=== PATIENT | female | born 1940 | race Two or more races ===

== ENCOUNTER 2021-11-14 13:08 | Inpatient (IN) | payer MEDICARE, OTHER ==
[~2021-11-14] VITALS: Ht 157.5 cm; Wt 111.1 kg
[~2021-11-14 13:08] MED LIST: APIX5TAB PO; ASPI-1094 PO; ATOR40TA PO; BUME1TAB9 PO; BUPR150T10 PO; CARV6.25 PO
[2021-11-14] MEDS ORDERED: ALTEPLASE CATHFLO 2 MG/VIAL IV ONE (13:11)
[2021-11-14] MEDS ORDERED: MORPHINE SULFATE INJ 4 MG/ML DISP.SYRIN ONE (14:18)
[2021-11-14] MEDS ORDERED: ONDANSETRON HCL/PF 4 MG/2 ML VIAL ONE (14:18)
[2021-11-14] MEDS ORDERED: ONDANSETRON HCL/PF 4 MG/2 ML VIAL IVP ONE (14:30)
[2021-11-14] MEDS ORDERED: MORPHINE SULFATE INJ 2 MG/ML DISP.SYRIN IV ONE (14:30)
[2021-11-14 14:45] LABS: BASOPHILS % (AUTO) 0.3 % (0.0-2.0); EOSINOPHILS % (AUTO) 1.4 % (0.0-6.0); HEMATOCRIT 39 % (33-45); HEMOGLOBIN 12.7 g/dL (11.5-14.8); LYMPHOCYTES # (AUTO) 1.6 K/uL (0.8-4.8); LYMPHOCYTES % (AUTO) 35.6 % (20.0-44.0); MEAN CORPUSCULAR HGB CONC 33 g/dl (31.0-36.0); MEAN CORPUSCULAR VOLUME 92 fL (82-100); MONOCYTES # (AUTO) 0.4 K/uL (0.1-1.30); MONOCYTES % (AUTO) 9.2 % (2.0-12.0); NEUTROPHILS # (AUTO) 2.4 K/uL (1.8-8.9); NEUTROPHILS % (AUTO) 53.5 % (43.0-81.0); PLATELET COUNT (AUTO) 179 K/uL (150-450); RED BLOOD CELL COUNT(AUTO) 4.25 MIL/uL (4.0-5.2); WHITE BLOOD COUNT (AUTO) 4.5 K/uL (4.3-11.0)
[2021-11-14 14:57] LABS: CALCIUM, SERUM 8.9 mg/dL (8.5-10.1); CARBON DIOXIDE 27 mmol/L (21-32); CHLORIDE 104 mmol/L (98-107); GLUCOSE 129 mg/dL (74-106); POTASSIUM 3.9 mmol/L (3.5-5.1); SODIUM SERUM 138 mmol/L (136-145); UREA NITROGEN, BLOOD 21 mg/dL (7-18)
[2021-11-14 15:03] LABS: D-DIMER 1.35 mg/L(FEU (0.17-0.50)
[2021-11-14] MEDS ORDERED: HEPARIN SODIUM, PORCINE 5000 UNITS/1 ML VIAL IV ONE (15:30)
[2021-11-14] MEDS ORDERED: HEPARIN SODIUM, PORCINE 5000 UNITS/1 ML VIAL ONE ×2 (15:30→17:36)
--- NOTE | 2021-11-14 15:55 | NUR ---
DR. SAN SPEAKING WITH DR. MAO ON THE PHONE.
--- NOTE | 2021-11-14 16:21 | NUR ---
CONSENT FORMS SIGNED BY PT AND PLACED IN THE CHART. PER PT AND FAMILY, THEY WOULD LIKE FOR US TO INFORM PT'S VASCULAR SURGEON, DR BERNAL ([phone]), ABOUT THE PROPOSED PROCEDURE BY DR. SAN.
--- NOTE | 2021-11-14 16:37 | NUR ---
SWAB SPECIMEN FOR COVID TEST SENT TO LAB
--- NOTE | 2021-11-14 17:06 | NUR ---
PT TRANSFERED TO SURGERY
[2021-11-14] MEDS ORDERED: ANESTHESIA TRAY IN PYXIS 1 EA TRAY MC ONE (17:16)
[2021-11-14] MEDS ORDERED: LIDOCAINE HCL/MPF 1% 30 ML VIAL IJ ONE (17:21)
[2021-11-14] MEDS ORDERED: HEPARIN SODIUM, PORCINE 1,000 UNIT/ML VIAL ONE (17:21)
[2021-11-14] MEDS ORDERED: ACETAMINOPHEN 325 MG TABLET PO PRN (17:30)
[2021-11-14] MEDS ORDERED: MORPHINE SULFATE INJ 2 MG/ML DISP.SYRIN IV PRN ×2 (17:30→18:00)
[2021-11-14] MEDS ORDERED: MAGNESIUM HYDROXIDE 30 ML UDC PO PRN ×2 (17:30→18:00)
[2021-11-14] MEDS ORDERED: ONDANSETRON HCL/PF 4 MG/2 ML VIAL IVP PRN (17:30)
[2021-11-14] MEDS ORDERED: ZOLPIDEM TARTRATE 5 MG TABLET PO PRN ×2 (17:30→22:00)
[2021-11-14] MEDS ORDERED: Z GUARD REMEDY 4 OZ OINT TP PRN ×2 (17:30→18:00)
[2021-11-14] MEDS ORDERED: MAG HYDROX/AL HYDROX/SIMETH 30 ML UDC PO PRN ×2 (17:30→18:00)
[2021-11-14] MEDS ORDERED: IV D5/0.45 NACL 1,000 ML IV PRN ×2 (17:30→18:00)
[2021-11-14] MEDS ORDERED: HYDROCODONE/APAP 5/325MG TABLET PO PRN ×2 (17:30→18:00)
[2021-11-14] MEDS ORDERED: FENTANYL PF 250MCG/5ML AMPUL ONE (17:34)
[2021-11-14] MEDS ORDERED: MIDAZOLAM HCL 2 MG/2ML VIAL ONE (17:35)
[2021-11-14] MEDS ORDERED: protAMINE SULFATE 10 MG/ML VIAL IV ONE (17:37)
[2021-11-14] MEDS ORDERED: CLINDAMYCIN IV RTU IN D5W 50 ML ONE (17:48)
[2021-11-14] MEDS ORDERED: BUPIVACAINE 0.25% 75 MG/30 ML VIAL ONE (18:38)
[2021-11-14 20:00] VITALS: BP 132/62
[2021-11-14] MEDS ORDERED: MORPHINE SULFATE INJ 4 MG/ML DISP.SYRIN IV PRN (20:00)
[2021-11-14] MEDS ORDERED: MENTHOL/CETYLPYRD (CEPACOL) 1 LOZ LOZENGE PO PRN (20:00)
--- NOTE | 2021-11-14 20:00 | NUR ---
AGRICULTURAL EDUCATION TEACHER. RECEIVED THE PT FROM OR ARLINE DRAIN 100ML. BLOOD.
[2021-11-14 20:24] LABS: BASOPHILS % (AUTO) 0.3 % (0.0-2.0); EOSINOPHILS % (AUTO) 0.4 % (0.0-6.0); HEMATOCRIT 38 % (33-45); HEMOGLOBIN 12.4 g/dL (11.5-14.8); LYMPHOCYTES # (AUTO) 0.5 K/uL (0.8-4.8); LYMPHOCYTES % (AUTO) 7.9 % (20.0-44.0); MEAN CORPUSCULAR HGB CONC 32 g/dl (31.0-36.0); MEAN CORPUSCULAR VOLUME 94 fL (82-100); MONOCYTES # (AUTO) 0.1 K/uL (0.1-1.30); MONOCYTES % (AUTO) 0.8 % (2.0-12.0); NEUTROPHILS # (AUTO) 6.2 K/uL (1.8-8.9); NEUTROPHILS % (AUTO) 90.6 % (43.0-81.0); PLATELET COUNT (AUTO) 171 K/uL (150-450); WHITE BLOOD COUNT (AUTO) 6.9 K/uL (4.3-11.0)
[2021-11-14] MEDS: ENOXAPARIN SODIUM 100 MG/ML DISP.SYRIN SQ SCH (20:26)
[2021-11-14 20:40] LABS: CALCIUM, SERUM 9.1 mg/dL (8.5-10.1); POTASSIUM 4.5 mmol/L (3.5-5.1)
[2021-11-14 21:00] VITALS: BP 129/75
--- NOTE | 2021-11-14 21:00 | NUR ---
HOURLY TEAM MEMBERS. PT RT HAND GOOD RADIAL PULSE. HAND TOUCH COLD. WILL MONITOR.
--- NOTE | 2021-11-14 21:25 | NUR ---
ENERGY SALES CONSULTANT, RECEIVED THE PT FROM OR VIA BED, S/PRT BRACHIAL EMBLOECTOMY. ARLINE DRAIN INTACT. MINIMAL DRAINING. PT IS AWAKE, ALERT, FOLLOW COMMANDS. HAND IS COLD. RADIAL PULSE PALPABLE AND GOOD STRENGTH., HOB ELEVATED, OXYGEN 3L VIA NASAL CANULA. SAT 98%. NO ACUTE DISTRESS NOTED. SPACE ENGINEER SHOWING V PACING. TEMPERATURE IS 98.8, ORALLY, WILL CONTINUE TO MONITOR VITALS.
--- NOTE | 2021-11-14 22:00 | NUR ---
SCHOOL COORDINATOR. RT HAND GOOD RADIAL PULSE, TOUCH COLD. WILL MONITOR
[2021-11-14 22:01] VITALS: BP 127/73
[2021-11-14 23:00] VITALS: BP 115/72
--- NOTE | 2021-11-14 23:00 | NUR ---
PROJECT PRODUCTION ENGINEER. PT RT HAND GOOD RADIAL PULSE. TOUCH COLD. NO DISCOLORATION NOTED
[2021-11-14 23:30] VITALS: BP 115/67
[2021-11-15] VITALS (27 sets, daily range): BP systolic 73–126; BP diastolic 26–74
--- NOTE | 2021-11-15 | NUR ---
CIVIL LAWYER. RT HAND GOOD RADIAL PULSE. TOUCH COLD. NO DISCOLORATION NOTED. WILL MONITOR.VITALS STABLE
--- NOTE | 2021-11-15 01:00 | NUR ---
MARKET ANALYSIS DIRECTOR. PT RT HAND GOOD RADIAL PULSE. TOUCH COLD. NO DISCOLORATION NOTED. VITALS STABLE.
--- NOTE | 2021-11-15 02:00 | NUR ---
CARROT TIER. PT RT HAND GOOD RADIAL PULSE. NO DISCOLORATION TOUCH COLD. VITALS STABLE.
[2021-11-15] MEDS: CLINDAMYCIN 600 MG in IV D5W 50 ML IV SCH ×3 (02:40→19:11)
--- NOTE | 2021-11-15 03:00 | NUR ---
RADIOLOGY EQUIPMENT SERVICER.PT VITALS STABLE. RT HAND GOOD RADIAL PULSE . TOUCH WARM.
--- NOTE | 2021-11-15 04:30 | NUR ---
REAR LOAD TRUCK DRIVER. AM CARE GIVEN. REMAINING SAME OXYGEN TOLERATEDW ELL. SAT 98%. NO ACUTE DISTRESS NOTED. OFFICE MACHINE INSTALLER SHOWING V PACING.HOB ELEVATED,IV LT AC 18G. SALINE LOCK. HOB ELEVATED, RT HAND GOOD RADIAL PULSE. TOUCH WARM. VITALS STABLE. WILL CONTINUE TO MONITOR VITALS.
--- NOTE | 2021-11-15 05:00 | NUR ---
HYPO SPLASHER. PT VITALS STABLE, RT HAND RADIAL PULSE GOOD. NO DISCOLORATION NOTED. TOUCH WARM
[2021-11-15 05:05] LABS: HEMATOCRIT 36 % (33-45); HEMOGLOBIN 11.4 g/dL (11.5-14.8); LYMPHOCYTES # (AUTO) 0.5 K/uL (0.8-4.8); LYMPHOCYTES % (AUTO) 3.3 % (20.0-44.0); MEAN CORPUSCULAR HGB CONC 32 g/dl (31.0-36.0); MEAN CORPUSCULAR VOLUME 94 fL (82-100); MONOCYTES # (AUTO) 0.8 K/uL (0.1-1.30); MONOCYTES % (AUTO) 5.3 % (2.0-12.0); NEUTROPHILS # (AUTO) 14.3 K/uL (1.8-8.9); NEUTROPHILS % (AUTO) 91.4 % (43.0-81.0); PLATELET COUNT (AUTO) 154 K/uL (150-450); RED BLOOD CELL COUNT(AUTO) 3.79 MIL/uL (4.0-5.2); WHITE BLOOD COUNT (AUTO) 15.7 K/uL (4.3-11.0)
[2021-11-15 05:17] LABS: CALCIUM, SERUM 8.4 mg/dL (8.5-10.1); CARBON DIOXIDE 27 mmol/L (21-32); CHLORIDE 107 mmol/L (98-107); CREATININE 1.1 mg/dL (0.6-1.3); GLUCOSE 122 mg/dL (74-106); POTASSIUM 4.4 mmol/L (3.5-5.1); SODIUM SERUM 138 mmol/L (136-145); UREA NITROGEN, BLOOD 21 mg/dL (7-18)
--- NOTE | 2021-11-15 06:47 | NUR ---
VOICER. PT RT HAND GOOD RADIAL PULSE. NO DISCOLORATION NOTED, HAND WARM. VITALS STABLE.
[2021-11-15] MEDS ORDERED: PANTOPRAZOLE 40 MG TABLET.DR PO SCH (07:30)
--- NOTE | 2021-11-15 07:40 | NUR ---
ICU/RN PT IS RESTING.ON 2L N/C SAT O2-100%.V/S STABLE,AFEBRILE.NO PAIN REPORTED AT THIS TIME.IV-HL.PT IS POST TROMBECTOMY ON THE RIGHT ARM.ARLINE DRAINING WITH BLOODY SECRETION ARM IS SWALLEN AND WARM.PULSES ARE PRESENT.LABS REVIEW.CONTINUE MONITORING.
[2021-11-15] MEDS: PANTOPRAZOLE 40 MG TABLET.DR PO SCH (08:11)
[2021-11-15] MEDS: DOCUSATE SODIUM 100 MG CAPSULE PO SCH ×2 (08:12→17:00)
[2021-11-15] MEDS: ASPIRIN 81 MG TAB.CHEW PO SCH (08:12)
[2021-11-15] MEDS: BUMETANIDE (1 MG) 1 MG TABLET PO SCH (08:12)
[2021-11-15] MEDS: MULTIVITAMINS,THERAGRAN 1 UDTAB TABLET PO SCH (08:12)
[2021-11-15] MEDS: CARVEDILOL 6.25 MG TABLET PO SCH ×2 (08:12→17:00)
[2021-11-15] MEDS: ENOXAPARIN SODIUM 100 MG/ML DISP.SYRIN SQ SCH ×2 (08:13→20:53)
[2021-11-15] MEDS: buPROPion SR 150 MG TABLET.ER PO SCH ×2 (08:14→17:00)
--- NOTE | 2021-11-15 09:15 | NUR ---
ICU/RN DUE MEDS ARE GIVEN ORDERED.PT IS AMBULATING TO THE BATHROOM WITH ASSISSTANCE.
--- NOTE | 2021-11-15 12:45 | NUR ---
PATIENT SEEN AND EXAMINED BY DR. PHILLIPS AT BEDSIDE, MD MADE AWARE OF AMOUNT OF BLEEDING FROM RIGHT ARM SURGICAL SITE WITH ARLINE DRAIN INPLACED. RIGHT RADIAL PULSES PALPABLE. TRACY WRAP APPLIED TO AFFECTED ARM BY MD. KEEP PATIENT ON NPO FOR NOW. STAT TYPE/CROSS, CBC ORDERED.
--- NOTE | 2021-11-15 13:10 | NUR ---
CONSENT SIGNED FOR RUE WOUND EXPLORATION BY PATIENT.
[2021-11-15 14:32] LABS: BASOPHILS % (AUTO) 0.2 % (0.0-2.0); EOSINOPHILS % (AUTO) 0.7 % (0.0-6.0); HEMATOCRIT 36 % (33-45); HEMOGLOBIN 11.5 g/dL (11.5-14.8); LYMPHOCYTES # (AUTO) 1.6 K/uL (0.8-4.8); LYMPHOCYTES % (AUTO) 11.8 % (20.0-44.0); MEAN CORPUSCULAR HGB CONC 32 g/dl (31.0-36.0); MEAN CORPUSCULAR VOLUME 94 fL (82-100); MONOCYTES # (AUTO) 1.1 K/uL (0.1-1.30); MONOCYTES % (AUTO) 8.5 % (2.0-12.0); NEUTROPHILS # (AUTO) 10.4 K/uL (1.8-8.9); NEUTROPHILS % (AUTO) 78.8 % (43.0-81.0); PLATELET COUNT (AUTO) 150 K/uL (150-450); RED BLOOD CELL COUNT(AUTO) 3.86 MIL/uL (4.0-5.2); WHITE BLOOD COUNT (AUTO) 13.3 K/uL (4.3-11.0)
[2021-11-15] MEDS ORDERED: ANESTHESIA TRAY IN PYXIS 1 EA TRAY MC ONE (16:35)
[2021-11-15] MEDS ORDERED: LIDOCAINE HCL/PF 1% 30 ML SDV ONE ×2 (17:03→18:14)
[2021-11-15] MEDS ORDERED: BUPIVACAINE 0.25% 75 MG/30 ML VIAL ONE (17:03)
--- NOTE | 2021-11-15 17:30 | NUR ---
ICU/RN PT WENT TO OR .V/S STABLE ,AFEBRILE.
[2021-11-15] MEDS ORDERED: FENTANYL PF 100MCG/2ML AMPUL ONE (17:59)
[2021-11-15] MEDS ORDERED: CELLULOSE,OXIDIZED 1 EACH EACH MC ONE (18:27)
[2021-11-15] MEDS: ATORVASTATIN 40 MG TABLET PO SCH (19:12)
--- NOTE | 2021-11-15 19:15 | NUR ---
ICU/RN PT IS BACK FROM OR.AWAKE,ALERT.V/S STABLE,AFEBRILE.NO PAIN REPORTED AT THIS TIME.RIGHT ARM ARLINE .DUE MEDS ARE GIVEN ORDERED.REPORT GIVEN TO JACKLYN/LONNY.
--- NOTE | 2021-11-15 19:18 | NUR ---
ICU/TRANSPORT ANALYST PT BACK FROM SURGERY, PT PLACED BACK ON MONITOR. CALL LIGHT WITHIN REACH. PT CURRENTLY DENIES PAIN AT THIS TIME. SURGICAL SITE NOTICED SOME BLEEDING. CIRCLES THIS AND WILL MONITOR FOR ANY FURTHER BLEEDING
--- NOTE | 2021-11-15 20:30 | NUR ---
ICU/CASE FOLDER TECH CAME IN TO DO THE LOWER EXTREMITY STUDY TO R/O DVT
[2021-11-15] MEDS: oxyCODONE/APAP (5/325 MG) 1 UDTAB TABLET PO PRN (20:52)
--- NOTE | 2021-11-15 21:35 | NUR ---
ICU/DINING SERVICE INSPECTOR PT COMPLAINED ABOUT PAIN TO RIGHT ARM, WHICH IS SURGICAL SITE. THIS IS RATED 10/10. 1 TAB PERCOCET GIVEN FOR THIS.
[2021-11-16] VITALS (21 sets, daily range): BP systolic 53–135; BP diastolic 13–68
--- NOTE | 2021-11-16 00:10 | NUR ---
ICU/BIOLOGY INSTRUCTOR PT UP WITH ASST TO BATHROOM, SOME SHORTNESS OF BREATH SEEN. ASST TO BED CALL LIGHT WITHIN REACH. PT DENIES PAIN.
--- NOTE | 2021-11-16 02:45 | NUR ---
ICU/SCHOOL BUS DRIVER PT UP WITH ASST TO BATHROOM, SOME SHORTNESS OF BREATH SEEN. ASST TO BED CALL LIGHT WITHIN REACH. PT DENIES PAIN.
[2021-11-16] MEDS: oxyCODONE/APAP (5/325 MG) 1 UDTAB TABLET PO PRN (04:29)
--- NOTE | 2021-11-16 04:45 | NUR ---
ICU/DELI CUTTER SLICER PT REFUSED AM LABS, SAID "THERE IS TOO MANY TUBES." CHARGE NURSE MADE AWARE. TRIED TO TELL PT IT'S SHOULD BE DONE, HOWEVER PT STILL REFUSED.
--- NOTE | 2021-11-16 05:00 | NUR ---
ICU/LABORATORY AIDE PT COMPLAINED ABOUT PAIN TO RIGHT ARM, WHICH IS SURGICAL SITE. THIS IS RATED 7/10. 1 TAB PERCOCET GIVEN FOR THIS. ALSO NOTICED SOME BLEEDING TO SURGICAL SITE, WILL MONITOR THIS.
--- NOTE | 2021-11-16 07:40 | NUR ---
ICU/RN PT IS RESTING ON 2L N/C SAT O2-98%.V/S STABLE ,AFEBRILE.NO PAIN REPORTED AT THIS TIME. POST TROMBECTOMY RIGHT UPPER ARM ,NO DRAINAGE FROM ARLINE . DRESSING DRY AND CLEAN ,HAND IS SWOLLEN.WARM.GOOD PULSES.
[2021-11-16] MEDS: PANTOPRAZOLE 40 MG TABLET.DR PO SCH (08:25)
[2021-11-16] MEDS: ASPIRIN 81 MG TAB.CHEW PO SCH (08:26)
[2021-11-16] MEDS: ENOXAPARIN SODIUM 100 MG/ML DISP.SYRIN SQ SCH ×2 (08:27→20:36)
[2021-11-16] MEDS: BUMETANIDE (1 MG) 1 MG TABLET PO SCH (08:27)
[2021-11-16] MEDS: DOCUSATE SODIUM 100 MG CAPSULE PO SCH ×2 (08:28→17:51)
[2021-11-16] MEDS: CARVEDILOL 6.25 MG TABLET PO SCH ×2 (08:28→17:51)
[2021-11-16] MEDS: MULTIVITAMINS,THERAGRAN 1 UDTAB TABLET PO SCH (08:28)
[2021-11-16] MEDS: buPROPion SR 150 MG TABLET.ER PO SCH ×2 (08:29→16:12)
--- NOTE | 2021-11-16 09:00 | NUR ---
ICU/RN DR PHILLIPS SEEN THE PT AND REMOVED ALRINE AND SUTURES.PT TOLERATED WELL NO S/S OF BLEEDING. DUE MEDS ARE GIVEN ORDERED.AM LABS DONE.
[2021-11-16 09:34] LABS: BASOPHILS % (AUTO) 0.3 % (0.0-2.0); EOSINOPHILS % (AUTO) 2.1 % (0.0-6.0); HEMATOCRIT 32 % (33-45); HEMOGLOBIN 10.4 g/dL (11.5-14.8); LYMPHOCYTES # (AUTO) 1.4 K/uL (0.8-4.8); LYMPHOCYTES % (AUTO) 19.1 % (20.0-44.0); MEAN CORPUSCULAR HGB CONC 33 g/dl (31.0-36.0); MEAN CORPUSCULAR VOLUME 93 fL (82-100); MONOCYTES # (AUTO) 0.6 K/uL (0.1-1.30); MONOCYTES % (AUTO) 7.4 % (2.0-12.0); NEUTROPHILS # (AUTO) 5.3 K/uL (1.8-8.9); NEUTROPHILS % (AUTO) 71.1 % (43.0-81.0); PLATELET COUNT (AUTO) 155 K/uL (150-450); RED BLOOD CELL COUNT(AUTO) 3.41 MIL/uL (4.0-5.2); WHITE BLOOD COUNT (AUTO) 7.5 K/uL (4.3-11.0)
[2021-11-16 09:48] LABS: ALBUMIN 2.7 g/dL (3.4-5.0); BILIRUBIN,DIRECT 0.2 mg/dL (0.0-0.2); BILIRUBIN,TOTAL 0.5 mg/dL (0.2-1.0); CALCIUM, SERUM 8.3 mg/dL (8.5-10.1); CREATININE 1.2 mg/dL (0.6-1.3); MAGNESIUM 1.9 mg/dL (1.8-2.4); POTASSIUM 3.8 mmol/L (3.5-5.1); TOTAL PROTEIN, SERUM 6.5 g/dL (6.4-8.2)
--- NOTE | 2021-11-16 12:24 | NUR ---
ICU/RN DURING SLEEP PT SAT O2 DECREASED TO 75- 80% ON ROOM AIR.DR ABRAHAM NOTIFIED. DR OCASIO SEEN THE PT.PT IS STABLE TO TRANSFER TO TELE UNIT.WAITING FOR THE BED.
[2021-11-16] MEDS: ACETAMINOPHEN 325 MG TABLET PO PRN (15:54)
--- NOTE | 2021-11-16 16:00 | NUR ---
ICU/RN PT HAS HEADACHE .TYLENOL PO GIVEN ORDERED.
[2021-11-16] MEDS: ATORVASTATIN 40 MG TABLET PO SCH (17:51)
--- NOTE | 2021-11-16 18:00 | NUR ---
TRANSFER FROM ICU PATIENT TRANSFERRED FROM ICU. A/O X4 STABLE. TONGAN SPEAKING UZBEK. DIAGNOSIS RIGHT ARM THROMBOLUS, THROMBECTOMY 2 DAYS AGO. ON CARDIAC DIET. NC 3 LITERS. CARDIAC V PACING. LAC #18. BLOOD PRESSURE NORMAL. NO MEDICATION. TOMORROW PLAM PT EVAL/ DC/ ABG. PATIENT'S BED AT LOWEST POSITION, CALL LIGHT WITHIN REACH. BED ALARM ON. WILL ENDORSE THE PATIENT TO THE LEGAL ANALYST NURSE.
--- NOTE | 2021-11-16 18:20 | NUR ---
ICU/RN PT TRANSFER TO TELE UNIT.V/S STABLE,AFEBRILE NO PAIN REPORTED AT THIS TIME. DUE MEDS ARE GIVEN ORDERED.REPORT GIVEN TO PAXTON /DENISE
--- NOTE | 2021-11-16 19:10 | NUR ---
RN NOTE RECEIVED PATIENT IN BED, AO X 4, IN NO S/SX OF ACUTE DISTRESS AT THIS TIME. BREATHING EVEN AND UNLABORED, SATURATION AT 97% ON ROOM AIR, V PACED ON THE MONITOR, HR IS 66. IV SITE AT LAC 18G PATENT AND FLUSHING WELL, NO S/S OF INFECTION OR INFILTRATION, SALINE LOCKED. DRESSING IN PLACE AT R ARM. NON USAGE OF RUE MAINTAINED. SAFETY MEASURES IMPLEMENTED. PATIENT BED ALARM IS ON. HEAD OF BED ELEVATED. BED IS LOCKED, IN LOWEST POSITION AND SIDE RAILS UP. CALL LIGHT WITHIN REACH OF THE PATIENT. WILL CONTINUE TO MONITOR AND REASSESS FOR ANY CHANGES.
[2021-11-16] MEDS: ONDANSETRON HCL/PF 4 MG/2 ML VIAL IVP PRN (20:36)
[2021-11-17] VITALS: BP 119/52
[2021-11-17 04:00] VITALS: BP 123/57
--- NOTE | 2021-11-17 07:20 | NUR ---
RN OPEN NOTE RECEIVED PATIENT IN BED, AO X 4, IN NO S/SX OF ACUTE DISTRESS AT THIS TIME. BREATHING EVEN AND UNLABORED, SATURATION AT 97% ON ROOM AIR, V PACED ON THE MONITOR, HR IS 66. IV SITE AT LAC 18G AND FLUSHING WELL, NO S/S OF INFECTION OR INFILTRATION, SALINE LOCKED. DRESSING IN PLACE AT R ARM. NON USAGE OF RUE MAINTAINED. SAFETY MEASURES IMPLEMENTED. PATIENT BED ALARM IS ON. HEAD OF BED ELEVATED. BED IS LOCKED, IN LOWEST POSITION AND SIDE RAILS UP. CALL LIGHT WITHIN REACH OF THE PATIENT. WILL CONTINUE TO MONITOR AND REASSESS FOR ANY CHANGES.
[2021-11-17 07:30] LABS: BASOPHILS % (AUTO) 0.4 % (0.0-2.0); EOSINOPHILS % (AUTO) 2.3 % (0.0-6.0); HEMATOCRIT 30 % (33-45); LYMPHOCYTES # (AUTO) 1.6 K/uL (0.8-4.8); LYMPHOCYTES % (AUTO) 24.5 % (20.0-44.0); MEAN CORPUSCULAR HGB CONC 33 g/dl (31.0-36.0); MEAN CORPUSCULAR VOLUME 92 fL (82-100); MONOCYTES # (AUTO) 0.7 K/uL (0.1-1.30); MONOCYTES % (AUTO) 11.5 % (2.0-12.0); NEUTROPHILS % (AUTO) 61.3 % (43.0-81.0); PLATELET COUNT (AUTO) 151 K/uL (150-450); RED BLOOD CELL COUNT(AUTO) 3.26 MIL/uL (4.0-5.2); WHITE BLOOD COUNT (AUTO) 6.5 K/uL (4.3-11.0)
[2021-11-17 07:49] LABS: CALCIUM, SERUM 8.4 mg/dL (8.5-10.1); CREATININE 0.9 mg/dL (0.6-1.3); PHOSPHORUS 2.5 mg/dL (2.5-4.9); POTASSIUM 3.9 mmol/L (3.5-5.1)
[2021-11-17] MEDS: DOCUSATE SODIUM 100 MG CAPSULE PO SCH ×2 (07:50→17:41)
[2021-11-17] MEDS: PANTOPRAZOLE 40 MG TABLET.DR PO SCH (07:50)
[2021-11-17] MEDS: MULTIVITAMINS,THERAGRAN 1 UDTAB TABLET PO SCH (07:51)
[2021-11-17] MEDS: ASPIRIN 81 MG TAB.CHEW PO SCH (07:51)
[2021-11-17] MEDS: BUMETANIDE (1 MG) 1 MG TABLET PO SCH (07:52)
[2021-11-17 08:00] VITALS: BP 120/67
[2021-11-17] MEDS: CARVEDILOL 6.25 MG TABLET PO SCH ×2 (08:02→17:00)
[2021-11-17] MEDS: buPROPion SR 150 MG TABLET.ER PO SCH ×2 (08:11→17:00)
[2021-11-17] MEDS: ENOXAPARIN SODIUM 100 MG/ML DISP.SYRIN SQ SCH ×2 (08:12→20:50)
[2021-11-17 09:05] LABS: ABG BASE EXCESS 3.5 mmol/L; ABG OXYGEN SATURATION 93.8 % (92.0-98.5); ABG PCO2 39.4 mmHg (35.0-45.0); ABG PH 7.461 (7.350-7.450); ABG PO2 66.5 mmHg (75.0-100.0); AaDO2 36.1 mmHg; COHb 0.4 % (0.5-1.5); MetHb 0.1 % (0.0-1.5); O2Hb 93.3 % (94.0-97.0); SITE, ABG Left Radial; VENT MODE, BG ROOM AIR
--- NOTE | 2021-11-17 09:40 | NUR ---
PATIENT DEVELOPED SEVERE PAIN OF HER POSTERIOR NECK 12/31 , BP WAS CHECKED 135/76, HR 68 , O 2 92 %STA MORPHINE 2 MG VIA IV WAS ADMINISTERS , RT ASSESSED THE PATIENT , PLACED PATIENT ON SIMPLE FACE MASK WITH O2 10 L , O2 SAT 100%.Dr Lund was notified.
[2021-11-17] MEDS: MORPHINE SULFATE INJ 2 MG/ML DISP.SYRIN IV PRN (10:10)
[2021-11-17 12:00] VITALS: BP 120/62
[2021-11-17 16:00] VITALS: BP 110/55
[2021-11-17] MEDS: ATORVASTATIN 40 MG TABLET PO SCH (17:41)
--- NOTE | 2021-11-17 18:26 | NUR ---
RN CLOSING NOTE PATIENT IS AO X 4, IN NO S/SX OF ACUTE DISTRESS AT THIS TIME. BREATHING EVEN AND UNLABORED, SATURATION AT 97% ON ROOM AIR, V PACED ON THE MONITOR, HR IS 62. IV SITE AT LAC 18G AND FLUSHING WELL, NO S/S OF INFECTION OR INFILTRATION, SALINE LOCKED. DRESSING IN PLACE AT R ARM. R HAND SWOLLEN, NO C/O PAIN, NON USAGE OF RUE MAINTAINED. SAFETY MEASURES IMPLEMENTED. PATIENT BED ALARM IS ON. HEAD OF BED ELEVATED. BED IS LOCKED, IN LOWEST POSITION AND SIDE RAILS UP. CALL LIGHT WITHIN REACH OF THE PATIENT. WILL ENDORSE FIRE INSPECTOR TO CONTINUE WITH POC.
--- NOTE | 2021-11-17 19:00 | NUR ---
RN NOTE RECEIVED PATIENT IN BED, AO X 4, FAMILY AT BEDSIDE, IN NO S/SX OF ACUTE DISTRESS AT THIS TIME. BREATHING DOES NOT APPEAR LABORED, SATURATION AT 96% AT 4L VIA NC, V PACED ON THE MONITOR, HR IS 65. IV SITE AT LAC 18G PATENT AND FLUSHING WELL, NO S/S OF INFECTION OR INFILTRATION, SALINE LOCKED. DRESSING IN PLACE AT R ARM. NON USAGE OF RUE MAINTAINED. SAFETY MEASURES IMPLEMENTED. PATIENT BED ALARM IS ON. HEAD OF BED ELEVATED. BED IS LOCKED, IN LOWEST POSITION AND SIDE RAILS UP. CALL LIGHT WITHIN REACH OF THE PATIENT. WILL CONTINUE TO MONITOR AND REASSESS FOR ANY CHANGES.
[2021-11-17 20:00] VITALS: BP 99/56
--- NOTE | 2021-11-17 21:00 | NUR ---
RN NOTE PATIENT'S SON INQUIRING ON CT PROCEDURE, TELEPHONE CALL TO RADIOLOGY TO VERIFY IF ABLE TO DO CT PULMONARY ANGIOGRAM ORDER IS STAT, THEY SAID THEY ARE STILL BUSY WITH ER BUT WILL TRY TO MAKE IT HAPPEN TONIGHT. PATIENT AND SON MADE AWARE.
[2021-11-18] VITALS: BP 91/53
[2021-11-18] MEDS: ACETAMINOPHEN 325 MG TABLET PO PRN (03:15)
[2021-11-18 04:00] VITALS: BP 110/64
--- NOTE | 2021-11-18 07:25 | NUR ---
RN OPENING NOTE RECEIVED PATIENT IN BED, AO X 4, IN NO S/SX OF ACUTE DISTRESS AT THIS TIME. BREATHING DOES NOT APPEAR LABORED, SATURATION AT 96% AT 4L VIA NC, V PACED ON THE MONITOR, HR IS 65. IV SITE AT LAC 18G PATENT AND FLUSHING WELL, NO S/S OF INFECTION OR INFILTRATION, SALINE LOCKED. DRESSING IN PLACE AT R ARM. NON USAGE OF RUE MAINTAINED. SAFETY MEASURES IMPLEMENTED. PATIENT BED ALARM IS ON. HEAD OF BED ELEVATED. BED IS LOCKED, IN LOWEST POSITION AND SIDE RAILS UP. CALL LIGHT WITHIN REACH OF THE PATIENT. WILL CONTINUE PLAN OF CARE AND ANTICIPATE NEEDS.
[2021-11-18] MEDS: PANTOPRAZOLE 40 MG TABLET.DR PO SCH (07:47)
[2021-11-18 08:00] VITALS: BP 96/56
[2021-11-18 08:08] LABS: EOSINOPHILS % (AUTO) 0.8 % (0.0-6.0); HEMATOCRIT 31 % (33-45); LYMPHOCYTES # (AUTO) 0.8 K/uL (0.8-4.8); LYMPHOCYTES % (AUTO) 6.4 % (20.0-44.0); MEAN CORPUSCULAR HGB CONC 33 g/dl (31.0-36.0); MEAN CORPUSCULAR VOLUME 93 fL (82-100); MONOCYTES # (AUTO) 0.7 K/uL (0.1-1.30); MONOCYTES % (AUTO) 5.6 % (2.0-12.0); NEUTROPHILS # (AUTO) 11.6 K/uL (1.8-8.9); NEUTROPHILS % (AUTO) 87.2 % (43.0-81.0); PLATELET COUNT (AUTO) 144 K/uL (150-450); RED BLOOD CELL COUNT(AUTO) 3.32 MIL/uL (4.0-5.2); WHITE BLOOD COUNT (AUTO) 13.3 K/uL (4.3-11.0)
[2021-11-18 08:24] LABS: CALCIUM, SERUM 8.2 mg/dL (8.5-10.1); CREATININE 1.2 mg/dL (0.6-1.3); MAGNESIUM 2.2 mg/dL (1.8-2.4); PHOSPHORUS 2.9 mg/dL (2.5-4.9); POTASSIUM 4.1 mmol/L (3.5-5.1)
[2021-11-18 08:36] LABS: THYROID STIMULATING HORMONE 0.764 uIU/mL (0.358-3.74)
[2021-11-18] MEDS ORDERED: IOHEXOL-350 100 ML VIAL IV ONE (08:45)
--- NOTE | 2021-11-18 09:04 | NUR ---
PATIENT HAS LEFT UNIT WITH RADIOLOGY TEAM TO UNDERGO IMAGING PROCEDURE.
[2021-11-18] MEDS: ASPIRIN 81 MG TAB.CHEW PO SCH (09:32)
[2021-11-18] MEDS: buPROPion SR 150 MG TABLET.ER PO SCH ×2 (09:32→17:46)
[2021-11-18] MEDS: CARVEDILOL 6.25 MG TABLET PO SCH ×2 (09:32→17:46)
[2021-11-18] MEDS: BUMETANIDE (1 MG) 1 MG TABLET PO SCH (09:32)
[2021-11-18] MEDS: MULTIVITAMINS,THERAGRAN 1 UDTAB TABLET PO SCH (09:32)
[2021-11-18] MEDS: DOCUSATE SODIUM 100 MG CAPSULE PO SCH ×2 (09:32→17:46)
[2021-11-18] MEDS: ENOXAPARIN SODIUM 100 MG/ML DISP.SYRIN SQ SCH ×2 (09:34→20:29)
[2021-11-18] MEDS: MORPHINE SULFATE INJ 2 MG/ML DISP.SYRIN IV PRN ×2 (10:29→12:30)
[2021-11-18] MEDS: ONDANSETRON HCL/PF 4 MG/2 ML VIAL IVP PRN (10:40)
--- NOTE | 2021-11-18 11:23 | NUR ---
PATIENT REPORTED SHORTNESS OF BREATH. OXYGEN SATURATION ON 1 LITER SUPPLEMENTAL OXYGEN VIA NASAL CANULA WAS 85%. RAISED HEAD OF BED AND TITRATED OXYGEN FROM 1 LITER TO 8 LITERS NASAL CANULA. PATIENT OXYGEN SATURATION NOW AT 97-98%. WILL CONTINUE TO ASSESS AND TITRATE OXYGEN NECESSARY.
[2021-11-18 12:00] VITALS: BP 101/59
[2021-11-18 16:00] VITALS: BP 113/80
--- NOTE | 2021-11-18 17:30 | NUR ---
RN NOTE RECEIVED PT IN BEDSIDE CHAIR. AOX4. DENIES ANY PAIN OR SOB AT THIS TIME. ON O2 AT 6L. NOT IN ANY DISTRESS. PT FAMILY AT BEDSIDE. R. ARM DRESSING INTACT, NO BLEEDING NOTED. ALL SAFETY MEASURES IN PLACE. CALL LIGHT WITHIN REACH. WILL CONTINUE TO MONITOR.
--- NOTE | 2021-11-18 17:35 | NUR ---
RN NOTE RECEIVED PT WITH DRESSING ON R. ARM, NO ACTIVE BLEEDING NOTED. BRUISING NOTED ON R. ARM, DENIES PAIN, PT STATED IT HAS BEEN LIKE IT SINCE FRIDAY. GOOD PALPABLE PULSE.
[2021-11-18] MEDS: FERROUS SULFATE (325 MG) 325 MG/TAB TABLET PO SCH (17:46)
[2021-11-18] MEDS: ATORVASTATIN 40 MG TABLET PO SCH (17:46)
--- NOTE | 2021-11-18 19:00 | NUR ---
RN NOTE ASSISTED PT BACK TO BED. NO DISTRESS NOTED. O2SAT AT 97% ON 6L. CALL LIGHT WITHIN REACH.
[2021-11-18 20:00] VITALS: BP 103/60
[2021-11-19] VITALS: BP 94/58
[2021-11-19] MEDS: ACETAMINOPHEN 325 MG TABLET PO PRN (03:00)
--- NOTE | 2021-11-19 03:45 | NUR ---
RN NOTE PT O2SAT AT 100% ON 6L. NOT IN ANY DISTRESS, DENIES ANY SOB. TITRATED TO 4L VIA NC. NOW SATING 95%. WILL CONTINUE TO MONITOR.
[2021-11-19 04:00] VITALS: BP 113/57
[2021-11-19 07:11] LABS: BASOPHILS % (AUTO) 0.2 % (0.0-2.0); EOSINOPHILS % (AUTO) 2.5 % (0.0-6.0); HEMATOCRIT 27 % (33-45); HEMOGLOBIN 9.3 g/dL (11.5-14.8); LYMPHOCYTES # (AUTO) 0.8 K/uL (0.8-4.8); LYMPHOCYTES % (AUTO) 8.9 % (20.0-44.0); MEAN CORPUSCULAR HGB CONC 34 g/dl (31.0-36.0); MEAN CORPUSCULAR VOLUME 91 fL (82-100); MONOCYTES # (AUTO) 0.9 K/uL (0.1-1.30); NEUTROPHILS # (AUTO) 7.6 K/uL (1.8-8.9); NEUTROPHILS % (AUTO) 79.4 % (43.0-81.0); PLATELET COUNT (AUTO) 133 K/uL (150-450); RED BLOOD CELL COUNT(AUTO) 2.98 MIL/uL (4.0-5.2); WHITE BLOOD COUNT (AUTO) 9.5 K/uL (4.3-11.0)
[2021-11-19 07:19] LABS: CALCIUM, SERUM 8.1 mg/dL (8.5-10.1); CREATININE 1.2 mg/dL (0.6-1.3); MAGNESIUM 2.5 mg/dL (1.8-2.4); PHOSPHORUS 2.9 mg/dL (2.5-4.9)
--- NOTE | 2021-11-19 07:36 | NUR ---
WAFER POLISHING LEAD WORKER OPENING NOTES: RECEIVED PT IN BED AWAKE, ALERT AND ORIENTED X 4 NOT IN ANY DISTRESS, DENIED ANY PAIN OR DISCOMFORT, ON OXYGEN 4L/MIN VIA NASAL CANULA.O2 SAT 95%.RIGHT ARM NOTED WITH BRUISE CONTINUE MONITORING , BED KEPT LOCKED AND IN LOW POSITION, IV ACCESS ON LAC GAUGE 18 PATENT AND FLUSHED WELL. WILL MONITOR
--- NOTE | 2021-11-19 07:45 | NUR ---
RN NOTE PT TOLERATING O2 AT 4L. 98% NOT IN ANY DISTRESS. PT DENIES ANYSOB OR PAIN AT THIS TIME. PT ABLE TO MAKE NEEDS KNOWN, ASSISTED ON NEEDS, TO BEDSIDE COMMODE. REMAIN AFEBRILE. ENDORSED TO SOHAN FOR VIJAY.
[2021-11-19 08:00] VITALS: BP 113/69
[2021-11-19 08:06] LABS: IMMUNOGLOBULIN A, SERUM 342 mg/dL (64-422); IMMUNOGLOBULIN G, SERUM 1223 mg/dL (586-1602); IMMUNOGLOBULIN M, SERUM 22 mg/dL (26-217)
[2021-11-19] MEDS: PANTOPRAZOLE 40 MG TABLET.DR PO SCH (08:29)
[2021-11-19] MEDS: ASPIRIN 81 MG TAB.CHEW PO SCH (08:50)
[2021-11-19] MEDS: DOCUSATE SODIUM 100 MG CAPSULE PO SCH ×2 (08:50→17:54)
[2021-11-19] MEDS: MULTIVITAMINS,THERAGRAN 1 UDTAB TABLET PO SCH (08:50)
[2021-11-19] MEDS: buPROPion SR 150 MG TABLET.ER PO SCH ×2 (08:50→17:54)
[2021-11-19] MEDS: FERROUS SULFATE (325 MG) 325 MG/TAB TABLET PO SCH ×2 (08:51→17:54)
[2021-11-19] MEDS: BUMETANIDE (1 MG) 1 MG TABLET PO SCH (08:51)
[2021-11-19] MEDS: CARVEDILOL 6.25 MG TABLET PO SCH ×3 (08:52→17:54)
[2021-11-19] MEDS: ENOXAPARIN SODIUM 100 MG/ML DISP.SYRIN SQ SCH ×2 (08:53→20:49)
[2021-11-19 12:00] VITALS: BP 101/61
[2021-11-19 13:07] LABS: *SPE A/G RATIO 0.9 (0.7-1.7); *SPE ALPHA-1-GLOBULIN 0.3 g/dL (0.0-0.4); *SPE ALPHA-2-GLOBULIN 0.7 g/dL (0.4-1.0); *SPE M-SPIKE Not Observed g/dL (Not Observed)
[2021-11-19] MEDS: oxyCODONE/APAP (5/325 MG) 1 UDTAB TABLET PO PRN (14:25)
--- NOTE | 2021-11-19 15:58 | NUR ---
RN NOTES: titrated O2 to 2 liter/min via nasal cannula O2 sat remained 94-96%. noted on exertion on room air O2 sat drop to 85%
[2021-11-19 16:00] VITALS: BP 116/86
[2021-11-19 17:06] LABS: *CARD ANTI-CARDIOLIPIN AB IgG <9 GPL U/mL (0-14); *CARD ANTI-CARDIOLIPIN AB IgM <9 MPL U/mL (0-12)
[2021-11-19] MEDS: ATORVASTATIN 40 MG TABLET PO SCH (17:54)
--- NOTE | 2021-11-19 19:20 | NUR ---
AOC DIRECTOR INTELLIGENCE OFFICER CLOSING NOTES: PT TOLERATING O2 AT 2L. 95% NOT IN ANY DISTRESS. PT DENIES ANY SOB OR PAIN AT THIS TIME. PT ABLE TO MAKE NEEDS KNOWN, ASSISTED ON NEEDS, TO BEDSIDE COMMODE. REMAIN AFEBRILE. ENDORSED TO NIGHT RN FOR VIJAY.
[2021-11-19 20:00] VITALS: BP 109/64
--- NOTE | 2021-11-19 20:04 | NUR ---
RN NOTE RECEIVED PT SITTING ON CHAIR. AOX4. ON O2 AT 2L VIA NC. DENIES ANY SOB, O2 SAT AT 96%. WITH TOLERABLE PAIN ON R UPPER LEG AT THIS TIME. ASSISTED TO RESTROOM AND BACK TO BED, NO SOB NOTED. WILL CONTINUE TO MONITOR.
[2021-11-19] MEDS: MORPHINE SULFATE INJ 2 MG/ML DISP.SYRIN IV PRN (20:59)
--- NOTE | 2021-11-19 23:43 | NUR ---
RN NOTE PT SLEEPING, AROUSES EASILY. DENIES PAIN AT THIS TIME. TOLERATES O2 AT 2L. ENDORSED TO DENISE MANZANO FOR VIJAY
[2021-11-20] VITALS: BP 98/56
--- NOTE | 2021-11-20 | NUR ---
RECEIVED PT ASLEEP. EASILY AWAKEN, AOX4. ON O2 AT 2L VIA NC. NO SOB, NOT IN DISTRESS. O2 SAT AT 95%. NO COMPLAINTS OF PAIN AT THIS TIME THIS TIME. LT HAND IV G#22 ON SL PATENT AND FLUSHING WELL. SAFETY MEASURES IN PLACE. PATIENT BED ALARM IS ON. HEAD OF BED ELEVATED. BED IS LOCKED IN LOWEST POSITION AND SIDE RAILS UP X2. CALL LIGHT WITHIN. WILL CONTINUE PLAN OF CARE.
[2021-11-20 04:00] VITALS: BP 127/78
[2021-11-20 06:51] LABS: BASOPHILS % (AUTO) 0.3 % (0.0-2.0); HEMATOCRIT 29 % (33-45); HEMOGLOBIN 9.7 g/dL (11.5-14.8); LYMPHOCYTES # (AUTO) 1.2 K/uL (0.8-4.8); MEAN CORPUSCULAR HGB CONC 33 g/dl (31.0-36.0); MEAN CORPUSCULAR VOLUME 92 fL (82-100); MONOCYTES # (AUTO) 0.9 K/uL (0.1-1.30); MONOCYTES % (AUTO) 12.7 % (2.0-12.0); NEUTROPHILS # (AUTO) 4.7 K/uL (1.8-8.9); PLATELET COUNT (AUTO) 152 K/uL (150-450); RED BLOOD CELL COUNT(AUTO) 3.16 MIL/uL (4.0-5.2)
--- NOTE | 2021-11-20 06:55 | NUR ---
PT AWAKE, AOX4. ON O2 AT 2-3L VIA NC. NO SOB, NOT IN DISTRESS. O2 SAT AT 92%-95%. NO COMPLAINTS OF PAIN AT THIS TIME THIS TIME. LT HAND IV G#22 ON SL PATENT AND FLUSHING WELL. SAFETY MEASURES IN PLACE. PATIENT BED ALARM IS ON. HEAD OF BED ELEVATED. BED IS LOCKED IN LOWEST POSITION AND SIDE RAILS UP X2. CALL LIGHT WITHIN. WILL ENDORSE TO NEXT NURSE ON DUTY FOR CONTINUITY OF CARE.
[2021-11-20 07:12] LABS: CALCIUM, SERUM 8.7 mg/dL (8.5-10.1); CARBON DIOXIDE 29 mmol/L (21-32); CHLORIDE 99 mmol/L (98-107); GLUCOSE 103 mg/dL (74-106); MAGNESIUM 2.6 mg/dL (1.8-2.4); PHOSPHORUS 2.9 mg/dL (2.5-4.9); POTASSIUM 4.1 mmol/L (3.5-5.1); SODIUM SERUM 132 mmol/L (136-145); UREA NITROGEN, BLOOD 17 mg/dL (7-18)
[2021-11-20 08:00] VITALS: BP 124/75
[2021-11-20] MEDS: buPROPion SR 150 MG TABLET.ER PO SCH ×2 (09:00→17:00)
[2021-11-20] MEDS: ASPIRIN 81 MG TAB.CHEW PO SCH (09:07)
[2021-11-20] MEDS: MULTIVITAMINS,THERAGRAN 1 UDTAB TABLET PO SCH (09:07)
[2021-11-20] MEDS: FERROUS SULFATE (325 MG) 325 MG/TAB TABLET PO SCH ×2 (09:07→18:15)
[2021-11-20] MEDS: BUMETANIDE (1 MG) 1 MG TABLET PO SCH (09:08)
[2021-11-20] MEDS: DOCUSATE SODIUM 100 MG CAPSULE PO SCH ×2 (09:08→18:11)
[2021-11-20] MEDS: PANTOPRAZOLE 40 MG TABLET.DR PO SCH (09:08)
[2021-11-20] MEDS: CARVEDILOL 6.25 MG TABLET PO SCH ×2 (09:09→18:12)
[2021-11-20] MEDS: ENOXAPARIN SODIUM 100 MG/ML DISP.SYRIN SQ SCH ×2 (09:11→21:05)
[2021-11-20 10:18] LABS: ABG BASE EXCESS 4.3 mmol/L; ABG OXYGEN SATURATION 97.1 % (92.0-98.5); ABG PCO2 49.2 mmHg (35.0-45.0); ABG PH 7.401 (7.350-7.450); ABG PO2 98.3 mmHg (75.0-100.0); AaDO2 72.3 mmHg; COHb 0.3 % (0.5-1.5); MetHb 0.2 % (0.0-1.5); O2Hb 96.6 % (94.0-97.0); SITE, ABG Left Radial; VENT MODE, BG nasal cannula
[2021-11-20 12:00] VITALS: BP 118/64
[2021-11-20 16:00] VITALS: BP 131/73
[2021-11-20] MEDS: ATORVASTATIN 40 MG TABLET PO SCH (18:11)
[2021-11-20 19:06] LABS: *ANTITHROMBIN III AG 74 % (72-124); *DILUTE PROTHROMBIN TIME (dPT) 42.2 sec (0.0-47.6); *THROMBIN TIME 18.6 sec (0.0-23.0); *dPT CONFIRM RATIO 0.88 Ratio (0.00-1.34); *dRVVT 39.3 sec (0.0-47.0)
--- NOTE | 2021-11-20 19:46 | NUR ---
RN NOTE PT RESTING IN BED, AWAKE ALERT AND RESPONSIVE. CONT IN O2 VIA NC @2L. TOLERATING WELL. R ARM PREC. DUE MEDICATIONS GIVEN, SAFETY MEASURES MAINTAINED. AM/PM CARE RENDERED.
--- NOTE | 2021-11-20 19:53 | NUR ---
HERB DIGGER OPENING NOTES: RECEIVED PT IN BED AWAKE, ALERT AND ORIENTED X 4, NOT IN ANY DISTRESS, DENIED ANY PAIN OR DISCOMFORT, ON OXYGEN 2L/MIN VIA NASAL CANULA. O2 SAT 95%. IV ACCESS ON L WRIST SL INTACT, PATENT, AND FLUSHES WELL, ON TELEMONITORING CURRENTLY READING SR WITH V PACING AT 65. BED LOCKED AND IN LOWEST POSITION, CALL LIGHT WITHIN REACH, WILL CONTINUE TO MONITOR CLOSELY THROUGHOUT THE SHIFT.
[2021-11-20 20:00] VITALS: BP 116/65
[2021-11-20] MEDS: oxyCODONE/APAP (5/325 MG) 1 UDTAB TABLET PO PRN ×2 (21:04→21:09)
[2021-11-20] MEDS: MORPHINE SULFATE INJ 2 MG/ML DISP.SYRIN IV PRN (21:12)
[2021-11-21] VITALS: BP 102/59
[2021-11-21 04:00] VITALS: BP 103/60
--- NOTE | 2021-11-21 06:40 | NUR ---
P 3 ARMAMENT/ORDNANCE IMA TECHNICIAN CLOSING NOTES: PT RESTING IN BED, ALERT AND ORIENTED X 4, NOT IN ANY DISTRESS, DENIED ANY PAIN OR DISCOMFORT, ON OXYGEN 2L/MIN VIA NASAL CANULA. O2 SAT 95%. IV ACCESS ON L WRIST SL INTACT, PATENT, AND FLUSHES WELL, ON TELEMONITORING CURRENTLY READING SR WITH V PACING AT 65. ALL DUE MEDS GIVEN, KEPT DRY AND CLEAN, BED LOCKED AND IN LOWEST POSITION, CALL LIGHT WITHIN REACH, WILL ENDORSE TO AM SHIFT NURSE.
[2021-11-21 06:45] LABS: BASOPHILS % (AUTO) 0.3 % (0.0-2.0); EOSINOPHILS % (AUTO) 3.9 % (0.0-6.0); HEMATOCRIT 28 % (33-45); HEMOGLOBIN 9.3 g/dL (11.5-14.8); LYMPHOCYTES # (AUTO) 1.6 K/uL (0.8-4.8); LYMPHOCYTES % (AUTO) 25.5 % (20.0-44.0); MEAN CORPUSCULAR HGB CONC 33 g/dl (31.0-36.0); MEAN CORPUSCULAR VOLUME 92 fL (82-100); MONOCYTES # (AUTO) 0.9 K/uL (0.1-1.30); MONOCYTES % (AUTO) 13.9 % (2.0-12.0); NEUTROPHILS # (AUTO) 3.6 K/uL (1.8-8.9); NEUTROPHILS % (AUTO) 56.4 % (43.0-81.0); PLATELET COUNT (AUTO) 167 K/uL (150-450); RED BLOOD CELL COUNT(AUTO) 3.08 MIL/uL (4.0-5.2); WHITE BLOOD COUNT (AUTO) 6.5 K/uL (4.3-11.0)
[2021-11-21 07:13] LABS: CALCIUM, SERUM 8.6 mg/dL (8.5-10.1); CARBON DIOXIDE 30 mmol/L (21-32); CHLORIDE 101 mmol/L (98-107); GLUCOSE 105 mg/dL (74-106); MAGNESIUM 2.3 mg/dL (1.8-2.4); PHOSPHORUS 3.1 mg/dL (2.5-4.9); POTASSIUM 3.7 mmol/L (3.5-5.1); SODIUM SERUM 137 mmol/L (136-145); UREA NITROGEN, BLOOD 15 mg/dL (7-18)
--- NOTE | 2021-11-21 07:45 | NUR ---
CUSTOMS PORT DIRECTOR OPENING NOTE RECEIVED PATIENT SITTING IN CHAIR, RESTING A0X4 ON 2L VIA NC AT 98%, REPORTS NO SOB OR RESPIRATORY DISTRESS. L HAND #22G SL INTACT PATIENT. ON TELEMONITORING CURRENTLY READING V PACING, PATIENT HAS PACEMAKER. PATIENT ON CARDIAC DIET. ALL SAFETY FALL PRECAUTIONS IN PLACE, BED LOCK ON, BED ALARM ON, SIDE RAILS UP, BED IN THE LOWEST POSITION, CALL LIGHT WITHIN REACH. WILL CONTINUE TO MONITOR THROUGH OUT THE SHIFT.
[2021-11-21 08:00] VITALS: BP 108/56
[2021-11-21] MEDS: BUMETANIDE (1 MG) 1 MG TABLET PO SCH (09:00)
[2021-11-21] MEDS: CARVEDILOL 6.25 MG TABLET PO SCH ×2 (09:00→17:00)
[2021-11-21] MEDS: buPROPion SR 150 MG TABLET.ER PO SCH ×2 (09:00→17:00)
[2021-11-21] MEDS: FERROUS SULFATE (325 MG) 325 MG/TAB TABLET PO SCH ×2 (09:18→17:00)
[2021-11-21] MEDS: DOCUSATE SODIUM 100 MG CAPSULE PO SCH ×2 (09:19→17:00)
[2021-11-21] MEDS: MULTIVITAMINS,THERAGRAN 1 UDTAB TABLET PO SCH (09:19)
[2021-11-21] MEDS: PANTOPRAZOLE 40 MG TABLET.DR PO SCH (09:19)
[2021-11-21] MEDS: ASPIRIN 81 MG TAB.CHEW PO SCH (09:20)
[2021-11-21] MEDS: ENOXAPARIN SODIUM 100 MG/ML DISP.SYRIN SQ SCH (09:25)
[2021-11-21 11:07] LABS: *FACTOR II, DNA ANALYSIS Negative (.)
[2021-11-21 11:26] LABS: BAND % (MANUAL) 2 % (0.0-5.0); BASOPHILS % (MANUAL) 0 % (0.0-2.0); EOSINOPHILS % (MANUAL) 3 % (0-4); LYMPHOCYTES % (MANUAL) 22 % (16-48); MONOCYTES % (MANUAL) 12 % (0-11.0); NEUTROPHILS % (MANUAL) 61 (42-76)
[2021-11-21] MEDS ORDERED: ENOX100D SQ (11:56)
[2021-11-21] MEDS ORDERED: ASCO500T10 PO (11:56)
[2021-11-21] MEDS ORDERED: FERR325T28 PO (11:56)
[2021-11-21 12:00] VITALS: BP 123/61
[2021-11-21 16:00] VITALS: BP 121/67
[2021-11-21 17:00] VITALS: BP 121/67
[2021-11-21] MEDS: ATORVASTATIN 40 MG TABLET PO SCH (18:00)
--- NOTE | 2021-11-21 18:19 | NUR ---
RN NOTES PATIENT REFUSED EVENING MEDICATION, PATIENT SAYS HER BLOOD PRESSURE IS FINE AND SHE IS GOING HOME SOON. RISKS AND BENEFITS EXPLAINED TO PATIENT.
--- NOTE | 2021-11-21 18:58 | NUR ---
CASINO ATTENDANT NOTE PATIENT DISCHARGED HOME. STABLE, A/Ox4, ABLE TO MAKE NEEDS KNOWN. PATIENT POST RIGHT BRACHIAL EMBOLECTOMY 11/14. SKIN INTACT: BRUISES PRESENT AND SURGICAL SITE ON R ARM DRESSED, NO S/S OF BLEEDING. DISCHARGE INSTRUCTIONS AND HEALTH TEACHINGS EXPLAINED TO PATIENT AND FAMILY. BOTH VERBALIZED UNDERSTANDING. ALL FORMS SIGNED, COPIED AND FILED INTO CHART. IV ACCESS REMOVED, PRESSURE DRESSING APPLIED. PATIENT REFUSED PHOTOS, ONLY WANTED THE DRESSING TO BE CHANGED. ID BAND REMOVED, PATIENT LEFT UNIT VIA WHEELCHAIR ACCOMPANIED BY KIMBERLY OLSON @0840. CHARGE NURSE AND MD AWARE OF DISCHARGE. PATIENT LEFT VIA PRIVATE CAR WITH FAMILY.
== END 2021-11-21 19:03 | disposition home health service (06) | DRG 253 ==
LOC: ER 13:10 → ICU 19:23 → TELE1 11-16 18:17
PROVIDERS: ADMIT Student in an Organized Health Care Education/Training Program; ATTEND Nurse Practitioner Family
PROC: 03C73ZZ Extirpation of Matter from Right Brachial Artery, Percutaneous Approach (ICD-10-PCS; principal; 2021-11-14)
PROC: 03CB3ZZ Extirpation of Matter from Right Radial Artery, Percutaneous Approach (ICD-10-PCS; 2021-11-14)
PROC: 03C93ZZ Extirpation of Matter from Right Ulnar Artery, Percutaneous Approach (ICD-10-PCS; 2021-11-14)
PROC: 3E05317 Introduction of Other Thrombolytic into Peripheral Artery, Percutaneous Approach (ICD-10-PCS; 2021-11-14)
PROC: 0X383ZZ Control Bleeding in Right Upper Arm, Percutaneous Approach (ICD-10-PCS; 2021-11-15)
DX: I74.2 Embolism and thrombosis of arteries of the upper extremities (principal); D68.69 Other thrombophilia; E87.1 Hypo-osmolality and hyponatremia; I42.9 Cardiomyopathy, unspecified; J98.11 Atelectasis; E66.2 Morbid (severe) obesity with alveolar hypoventilation; Z68.41 Body mass index [BMI] 40.0-44.9, adult; I48.91 Unspecified atrial fibrillation; M79.7 Fibromyalgia; Z79.01 Long term (current) use of anticoagulants; D63.8 Anemia in other chronic diseases classified elsewhere; D72.829 Elevated white blood cell count, unspecified; E83.41 Hypermagnesemia; E86.0 Dehydration; Z88.0 Allergy status to penicillin; Z88.2 Allergy status to sulfonamides; Z86.718 Personal history of other venous thrombosis and embolism; Z95.810 Presence of automatic (implantable) cardiac defibrillator; I50.9 Heart failure, unspecified; E88.09 Other disorders of plasma-protein metabolism, not elsewhere classified; I11.0 Hypertensive heart disease with heart failure; M19.90 Unspecified osteoarthritis, unspecified site; M81.0 Age-related osteoporosis without current pathological fracture; S40.021A Contusion of right upper arm, initial encounter; X58.XXXA Exposure to other specified factors, initial encounter; Y93.89 Activity, other specified; Y92.230 Patient room in hospital as the place of occurrence of the external cause
CPT/HCPCS: 36415; 36600; 71045-TC; 80048-TC; 80076-TC; 81240; 81241; 82607-TC; 82728-TC; 82784; 82803-TC; 83090; 83540-TC; 83735-TC; 83880; 84100-TC; 84155; 84165; 84443-TC; 84484-TC; 85025-TC; 85300; 85301; 85303; 85378-TC; 85610-TC; 85613; 85670; 85705; 85730-TC; 85732; 86147; 86334; 86850-TC; 93307-TC; 93930-TC; 93970-TC; 93971-TC; 94799-TC; 97116-TC; 97530-TC; A6209; A6253; A6403; C1757; C9803; G0378; J1644; J1650; J2250; J2270; J2405; J2704; J2720; J2765; J2997; J3010; J3490; J7030; J7060; Q9967

== ENCOUNTER 2021-11-25 12:12 | Inpatient (IN) | payer MEDICARE, OTHER ==
[~2021-11-25] VITALS: Ht 160 cm; Wt 98.0 kg
[~2021-11-25 12:12] MED LIST changes: +ASCO500T10 PO; +ENOX100D SQ; +FERR325T28 PO
--- NOTE | 2021-11-25 12:24 | NUR ---
BIB SON FROM HOME, PT C/O R HIP PAIN X3DAYS, DENIES TRAUMA NOR INJURY. TO ER BED 3.
[2021-11-25] MEDS ORDERED: MORPHINE SULFATE INJ 2 MG/ML DISP.SYRIN IV ONE (13:00)
[2021-11-25] MEDS ORDERED: MORPHINE SULFATE INJ 4 MG/ML DISP.SYRIN ONE (13:07)
--- NOTE | 2021-11-25 13:07 | NUR ---
X RAY AT BEDSIDE
[2021-11-25 13:39] LABS: BASOPHILS % (AUTO) 0.2 % (0.0-2.0); EOSINOPHILS % (AUTO) 1.9 % (0.0-6.0); HEMATOCRIT 29 % (33-45); HEMOGLOBIN 9.6 g/dL (11.5-14.8); LYMPHOCYTES # (AUTO) 1.9 K/uL (0.8-4.8); LYMPHOCYTES % (AUTO) 23.2 % (20.0-44.0); MEAN CORPUSCULAR HGB CONC 33 g/dl (31.0-36.0); MEAN CORPUSCULAR VOLUME 93 fL (82-100); MONOCYTES # (AUTO) 0.7 K/uL (0.1-1.30); MONOCYTES % (AUTO) 8.9 % (2.0-12.0); NEUTROPHILS # (AUTO) 5.4 K/uL (1.8-8.9); NEUTROPHILS % (AUTO) 65.8 % (43.0-81.0); PLATELET COUNT (AUTO) 268 K/uL (150-450); RED BLOOD CELL COUNT(AUTO) 3.18 MIL/uL (4.0-5.2); WHITE BLOOD COUNT (AUTO) 8.3 K/uL (4.3-11.0)
[2021-11-25] MEDS ORDERED: ASCO-340 PO (13:59)
[2021-11-25] MEDS ORDERED: CHOL100043 PO (13:59)
[2021-11-25] MEDS ORDERED: BUME1TAB8 PO (13:59)
[2021-11-25] MEDS ORDERED: FERR325T24 PO (13:59)
[2021-11-25] MEDS ORDERED: PANT40TA49 PO (13:59)
[2021-11-25] MEDS ORDERED: CARV6.252 PO (14:00)
[2021-11-25 14:03] LABS: ALBUMIN 2.8 g/dL (3.4-5.0); BILIRUBIN,DIRECT 0.5 mg/dL (0.0-0.2); BILIRUBIN,TOTAL 1.3 mg/dL (0.2-1.0); CALCIUM, SERUM 8.6 mg/dL (8.5-10.1); CREATININE 1.1 mg/dL (0.6-1.3); POTASSIUM 3.9 mmol/L (3.5-5.1); TOTAL PROTEIN, SERUM 7.1 g/dL (6.4-8.2)
[2021-11-25] MEDS ORDERED: HYDROMORPHONE 1 MG/1 ML DISP.SYRIN ONE (14:26)
[2021-11-25] MEDS ORDERED: HYDROMORPHONE 1 MG/1 ML DISP.SYRIN IV ONE (14:30)
[2021-11-25] MEDS ORDERED: IV NS 0.9% 1,000 ML IV ONE (15:00)
--- NOTE | 2021-11-25 15:22 | NUR ---
ROOM [id number]
[2021-11-25] MEDS ORDERED: ACETAMINOPHEN 325 MG TABLET PO PRN (15:30)
[2021-11-25] MEDS ORDERED: ONDANSETRON HCL/PF 4 MG/2 ML VIAL IVP PRN (15:30)
[2021-11-25] MEDS ORDERED: HYDROCODONE/APAP 5/325MG TABLET PO PRN (15:30)
[2021-11-25] MEDS ORDERED: MAG HYDROX/AL HYDROX/SIMETH 30 ML UDC PO PRN (15:30)
[2021-11-25] MEDS: ENOXAPARIN SODIUM 100 MG/ML DISP.SYRIN SQ SCH ×2 (15:30→21:00)
[2021-11-25] MEDS ORDERED: CARVEDILOL 6.25 MG TABLET PO PRN (15:30)
[2021-11-25] MEDS ORDERED: MORPHINE SULFATE INJ 2 MG/ML DISP.SYRIN IV PRN (15:30)
--- NOTE | 2021-11-25 15:40 | NUR ---
RN Receiving report. PT AOx4, able to express her own concerns. Patient states feeling tired. Assessment done,multiple bruises throughout Bilat. Legs, Bilat arms, abdomen an back, 10 pictures taken and in chart. All bruises are purple patient states it is due to recent hospital stay for her arterial surgery and blood thinners. Patient able to walk to bathroom with assistance, does not want to use bedside commode. Patient arrived safe, dressed for hospital stay, non slip socks on. All safety precautions taken with patient, oriented to the floor, and made aware of how to reach nurse. Call light and table within reach and bed at lowest position. Pending Imaging test, will follow up as needed.
--- NOTE | 2021-11-25 15:41 | NUR ---
PT REPORT GIVEN TO DENISE OCHOA
[2021-11-25] MEDS ORDERED: IOHEXOL-350 100 ML VIAL IV ONE (16:07)
[2021-11-25] MEDS ORDERED: IV NS 0.9% 250 ML IV ONE (16:07)
[2021-11-25] MEDS ORDERED: VANCOMYCIN 1 GM in IV D5W 250 ML IV ONE (16:30)
[2021-11-25] MEDS ORDERED: Z GUARD REMEDY 4 OZ OINT TP PRN (17:00)
[2021-11-25] MEDS ORDERED: FERROUS SULFATE (325 MG) 325 MG/TAB TABLET PO SCH (17:00)
[2021-11-25] MEDS ORDERED: ATORVASTATIN 40 MG TABLET PO SCH (18:00)
--- NOTE | 2021-11-25 18:58 | NUR ---
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 consulted with Charge nurse: Lovenox not administered due to multiple bruising and signs of bleeding.
--- NOTE | 2021-11-25 19:27 | NUR ---
RN Closing Note PT AOx4, able to express her own concerns, patient back from Imaging and having dinner at the moment. Son was at bedside earlier. Patient remained safe throughout shift, no incidents, call light and table within reach and bed at lowest position. IV L AC 20g, no signs of infiltration, no pain reported. Will endorse report to night nurse.
--- NOTE | 2021-11-25 19:30 | NUR ---
CARD TENDER OPENING NOTES RECEIVED PATIENT IN BED; AWAKE, ALERT AND ORIENTED X 4. ON OXYGEN INHALATION @ 2LPM VIA NASAL CANNULA; TOLERATING WELL. NOT IN ANY FORM OF RESPIRATORY DISTRESS. ON TELEMETRY MONITORING WITH READING OF VENTRICULAR PACING HR-65 BPM. WITH IV ACCESS ON LEFT ANTECUBITAL 20g; PATENT, INTACT AND SALINE LOCKED. NO INFILTRATION NOTED. ABLE TO MAKE NEEDS KNOWN. FALL AND SAFETY MEASURES IMPLEMENTED: CALL LIGHT AND TABLE WITHIN REACH, SIDE RAILS UP X 2, BED IN LOWEST LOCKED POSITION. WILL CONTINUE PLAN OF CARE.
--- NOTE | 2021-11-25 19:52 | NUR ---
Caroline. Non-Admin RN Note Pt arrived back to our unit from imaging around 1640 Called ER regarding one time order for Jakeo, ER nurse states they do not have medication. Checked cabinet and medication not delivered. Pharmacy is closed. Consulted with my charge nurse and endorsed to night charge nurse she will follow up with night nurse. .
[2021-11-25] MEDS ORDERED: VANCOMYCIN 1 GM VIAL ONE (19:59)
[2021-11-25 20:00] VITALS: BP 122/59
[2021-11-25 20:34] VITALS: BP 122/59
[2021-11-25] MEDS ORDERED: MAGNESIUM HYDROXIDE 30 ML UDC PO PRN (22:00)
--- NOTE | 2021-11-25 22:13 | NUR ---
RN NOTES LOVENOX 100 MG HELD PER PATIENT'S REQUEST.
--- NOTE | 2021-11-25 22:29 | NUR ---
RN NOTES PATIENT C/O RIGHT HIP PAIN 8/10; PRN MORPHINE 2MG/1ML GIVEN IV ORDERED. WILL CONTINUE TO MONITOR AND REASSESS PT.
[2021-11-25 23:30] VITALS: BP 120/62
--- NOTE | 2021-11-25 23:30 | NUR ---
RN NOTES PT VERBALIZED PAIN IS UNRELIEVED BY MORPHINE. VITAL SIGNS TAKEN AND RECORDED: TEMP - 98.1, RI-64, RR-18, O2 SAT 98%, BP-120/62 MM HG.
--- NOTE | 2021-11-25 23:53 | NUR ---
RN NOTES PATIENT'S SON, SKYLER KEATING (NEXT OF KIN) SIGNED AMA FORM. PER SON, "THE VASCULAR SURGEON OF HIS MOTHER FROM [facility] ADVISED THEM TO DO AMA AND BRING HIS MOTHER TO [facility]." ALL PERSONAL BELONGINGS CHECKED AND HANDED BACK TO PT. NAME WRIST BAND REMOVED. IV SITE REMOVED. PATIENT LEFT THE HOSPITAL PER WHEELCHAIR ACCOMPANIED BY SON. DOG WALKER HOSPITALIST AND CHARGE NURSE MADE AWARE.
[2021-11-26 00:02] VITALS: BP 120/62
[2021-11-26 00:04] VITALS: BP 122/59
[2021-11-26] MEDS ORDERED: PANTOPRAZOLE 40 MG TABLET.DR PO SCH (07:30)
[2021-11-26] MEDS ORDERED: ASPIRIN 81 MG TAB.CHEW PO SCH (09:00)
[2021-11-26] MEDS ORDERED: CARVEDILOL 6.25 MG TABLET PO SCH (09:00)
[2021-11-26] MEDS ORDERED: BUMETANIDE (1 MG) 1 MG TABLET PO SCH (09:00)
== END 2021-11-26 | disposition left against medical advice (07) | DRG 552 ==
LOC: ER 12:19 → TELE 16:05
DX: M51.36 Other intervertebral disc degeneration, lumbar region (principal); D68.59 Other primary thrombophilia; I42.9 Cardiomyopathy, unspecified; L03.311 Cellulitis of abdominal wall; Z79.01 Long term (current) use of anticoagulants; Z20.822 Contact with and (suspected) exposure to COVID-19; Z95.0 Presence of cardiac pacemaker; I11.0 Hypertensive heart disease with heart failure; I48.91 Unspecified atrial fibrillation; I50.9 Heart failure, unspecified; M79.7 Fibromyalgia; M19.90 Unspecified osteoarthritis, unspecified site; Z88.1 Allergy status to other antibiotic agents; Z88.0 Allergy status to penicillin; Z88.2 Allergy status to sulfonamides; Z79.899 Other long term (current) drug therapy; Z79.82 Long term (current) use of aspirin; Z98.890 Other specified postprocedural states; Z86.79 Personal history of other diseases of the circulatory system; Z53.29 Procedure and treatment not carried out because of patient's decision for other reasons; D64.9 Anemia, unspecified; Z86.718 Personal history of other venous thrombosis and embolism; K57.30 Diverticulosis of large intestine without perforation or abscess without bleeding; K74.60 Unspecified cirrhosis of liver; K82.8 Other specified diseases of gallbladder; M47.816 Spondylosis without myelopathy or radiculopathy, lumbar region; M62.89 Other specified disorders of muscle; M79.81 Nontraumatic hematoma of soft tissue
CPT/HCPCS: 36415; 72110-TC; 72131-TC; 72190-TC; 73502; 80048-TC; 80076-TC; 83605-TC; 83690-TC; 84484-TC; 85025-TC; 85652-TC; 86140-TC; 87040-TC; 87081-TC; C9803; G0378; J1170; J2270; J3370; J7050; J7060; Q9967